=== PATIENT | male | born 1955 | race African-American/Black ===

== ENCOUNTER 2022-06-05 18:18 | Emergency (ER) | payer MEDICAID, OTHER ==
[~2022-06-05] VITALS: Ht 190.5 cm; Wt 92.0 kg
[2022-06-05 18:21] VITALS: BP 134/103
[2022-06-05] MEDS ORDERED: BACITRACIN ZINC OINT UDPKT TOP ONE (18:45)
[2022-06-05] MEDS ORDERED: ACETAMINOPHEN 325MG TABLET PO ONE (18:45)
[2022-06-05] MEDS ORDERED: TETANUS, DIPHTHERIA, PERTUSSIS VAC/PF 0.5ML (>10YR OLD) IM ONE (18:45)
[2022-06-05] MEDS ORDERED: LIDOCAINE HCL/PF 1% 10 MG/ML 5ML VIAL INFIL ONE (18:45)
[2022-06-05] MEDS ORDERED: TRAMADOL 50MG TABLET PO ONE (19:00)
[2022-06-05] MEDS ORDERED: IBUP-2028 MT (20:25)
== END 2022-06-05 20:56 | disposition home or self-care (01) ==
LOC: ER 18:18
DX: S02.40FA Zygomatic fracture, left side, initial encounter for closed fracture (principal); S01.91XA Laceration without foreign body of unspecified part of head, initial encounter; Y04.0XXA Assault by unarmed brawl or fight, initial encounter; Y93.89 Activity, other specified; Y92.89 Other specified places as the place of occurrence of the external cause; Y99.8 Other external cause status
CPT/HCPCS: 12005; 70450; 70480; 73030; 73060; 73090; 90471; 90715; 99285; J3490; Z7610